=== PATIENT | male | born 1985 | race African-American/Black ===

== ENCOUNTER 2017-06-20 21:45 | Emergency (ER) | payer SELFPAY | END 2017-06-20 22:01 | disposition home or self-care (01) | LOC: ERS 21:45 | DX: R36.9 Urethral discharge, unspecified (principal); Z20.2 Contact with and (suspected) exposure to infections with a predominantly sexual mode of transmission; F17.210 Nicotine dependence, cigarettes, uncomplicated; I10 Essential (primary) hypertension | CPT/HCPCS: 99406 ==